=== PATIENT | male | born 1950 | race African-American/Black ===

== ENCOUNTER 2017-01-24 01:16 | Emergency (ER) | payer MEDICARE, OTHER ==
--- NOTE | 2017-01-24 03:15 | ER Document Report ---
HPI - HPI Patient complains to provider of: Left thumb injury Pain Level: 4 Context: Patient is a 66-year-old male comes emergency department for chief complaint of injury to his left thumb, he states that he was hammering yesterday and hit with a hammer, he states that instead of improving the usual it has become significantly more painful and he cannot stand the throbbing. He is not on a blood thinner, past medical history of hypertension and hyperlipidemia, he is medicated for these. He denies any other injuries or complaints. - DERM Skin Color: Normal Past Medical History - General Information source: Patient - Social History Smoking Status: Never Smoker Frequency of alcohol use: None Drug Abuse: None Lives with: Family Family History: Reviewed & Not Pertinent - Past Medical History Cardiac Medical History: Reports: Hx Hypercholesterolemia, Hx Hypertension Renal/ Medical History: Reports: Hx Kidney Stones. Denies: Hx Peritoneal Dialysis Musculoskeltal Medical History: Reports Hx Arthritis Past Surgical History: Reports: Hx Orthopedic Surgery - Left total hip replacement for DJD - Immunizations Hx Diphtheria, Pertussis, Tetanus Vaccination: Yes Vertical Provider Document - INFECTION CONTROL TRAVEL OUTSIDE OF THE [place] IN LAST 30 DAYS: No - HEENT HEENT: Atraumatic, Normocephalic - NECK Neck: Normal Inspection - RESPIRATORY Respiratory: Breath Sounds Normal, No Respiratory Distress O2 Sat by Pulse Oximetry: 99 - CARDIOVASCULAR Cardiovascular: Regular Rate, Regular Rhythm - GI/ABDOMEN Gastrointestinal: Abdomen Soft, Abdomen Non-Tender - BACK Back: Normal Inspection - MUSCULOSKELETAL/EXTREMETIES Musculoskeletal/Extremeties: Tender - Left thumbnail with bruising/bleeding underneath, minimal swelling to the thumb, normal range of motion of the thumb at all joints, no abnormal heat, normal sensation, normal capillary refill. Normal hand exam otherwise. Course - Vital Signs Vital signs: Temp Pulse Resp BP Pulse Ox 97.7 F 79 16 151/89 H 99 01/24/17 01:21 01/24/17 01:21 01/24/17 01:21 01/24/17 01:21 01/24/17 01:21 - Diagnostic Test Radiology reviewed: Image reviewed, Reports reviewed Procedures - Additional Procedures Left thumb Notes: Left thumbnail cleaned with alcohol, dried off, afterwards Bovie was used to burn a hole in the top of the nail, moderately large amount of bleeding from underneath the nail occurred and was expressed afterwards. Patient had good relief of symptoms. Area cleaned and dressed. Discharge - Discharge Clinical Impression: Subungual hematoma Thumb injury Qualifiers: Encounter type: initial encounter Laterality: left Qualified Code(s): S69.92XA - Unspecified injury of left wrist, hand and finger(s), initial encounter Condition: Stable Disposition: HOME, SELF-CARE Additional Instructions: You have a collection of blood between the nail bed and nail, called a subungual hematoma. This injury is often very painful due to the pressure that builds up under the nail. The pressure is relieved by draining blood from beneath the nail, either by creating some small holes in it, or by the nail from the skin. This will usually stop the pain. Sometimes the nail must be removed completely to examine the nail bed for injury. You should elevate the injured digit as much as possible for the next two days. Usually the injured nail will separate from its bed over the next few weeks. A new nail will grow over the exposed nail bed. This may take two or three months. If swelling around the cuticle, redness, fever, or increasing pain occur, you should call the doctor immediately. Referrals: JOSE DE JESUS LIRIANO MD [Primary Care Provider] - Follow up as needed
[2017-01-24] MEDS ORDERED: ACETAMINOPHEN 325 MG TABLET ONE (03:41)
[2017-01-24] MEDS ORDERED: ACETAMINOPHEN 325 MG TABLET PO ONE (03:49)
--- NOTE | 2017-01-24 05:06 | RADIOLOGY REPORT (SQ) ---
EXAM DESCRIPTION: FINGER LEFT CLINICAL HISTORY: 66 years, Male, thumb injury COMPARISON: None. NUMBER OF VIEWS: 3 TECHNIQUE: Routine radiographic technique. LIMITATIONS: None. FINDINGS: No fractures or dislocations. No radiopaque soft tissue foreign bodies or soft tissue gas. Evidence of early osteoarthritis in the first left metatarsal phalangeal joint. IMPRESSION: Degenerative disease. No fractures, dislocations or radiopaque soft tissue foreign bodies. 2011 [employer]- All Rights Reserved
[2017-01-24 05:20] VITALS: BP 110/88
== END 2017-01-24 05:18 | disposition home or self-care (01) ==
LOC: ER 01:16
PROC: 0H9QXZZ Drainage of Finger Nail, External Approach (ICD-10-PCS; principal; 2017-01-24)
DX: S60.112A Contusion of left thumb with damage to nail, initial encounter (principal); W27.8XXA Contact with other nonpowered hand tool, initial encounter; Y92.009 Unspecified place in unspecified non-institutional (private) residence as the place of occurrence of the external cause; I10 Essential (primary) hypertension; E78.5 Hyperlipidemia, unspecified; Z79.899 Other long term (current) drug therapy
CPT/HCPCS: 99283; 73140; 11740; A9270

== ENCOUNTER 2017-08-30 21:09 | Emergency (ER) | payer MEDICARE, OTHER ==
[2017-08-30 21:23] VITALS: BP 138/83
--- NOTE | 2017-08-30 23:48 | ER Document Report ---
ED General - General Chief Complaint: Splinter in L foot Stated Complaint: LEFT FOOT INJURY Time Seen by Provider: 08/30/17 22:00 Notes: Patient is a 67-year-old male who presents with a splinter in his left heel. He states this occurred when he was walking barefoot on a ramp in front of his house. He states that he was unable to remove the splinter. He notes a dull, throbbing, stabbing pain to the affected area. Walking on the foot is unbearable due to the pain. Nothing improves the pain. No history of similar injury in the past. He is up-to-date on his tetanus immunization. He has not seen his primary doctor regarding today's concerns. TRAVEL OUTSIDE OF THE [place] IN LAST 30 DAYS: No Past Medical History - General Information source: Patient - Social History Smoking Status: Never Smoker Frequency of alcohol use: None Drug Abuse: None Lives with: Family Family History: Reviewed & Not Pertinent - Past Medical History Cardiac Medical History: Reports: Hx Hypercholesterolemia, Hx Hypertension Renal/ Medical History: Reports: Hx Kidney Stones. Denies: Hx Peritoneal Dialysis Musculoskeltal Medical History: Reports Hx Arthritis Past Surgical History: Reports: Hx Orthopedic Surgery - Left total hip replacement for DJD - Immunizations Hx Diphtheria, Pertussis, Tetanus Vaccination: Yes Review of Systems - Review of Systems Notes: Constitutional: Negative for fever. Cardiovascular: Negative for chest pain. Respiratory: Negative for shortness of breath. Gastrointestinal: Negative for vomiting Musculoskeletal: Negative for back pain. Skin: Positive for a splinter in the left heel Neurological: Negative for weakness or numbness. 10 point ROS negative except as marked above and in HPI. Physical Exam - Vital signs Vitals: Temp Pulse Resp BP Pulse Ox 98.1 F 81 18 138/83 H 96 08/30/17 21:19 08/30/17 21:19 08/30/17 21:19 08/30/17 21:19 08/30/17 21:19 Notes: PHYSICAL EXAMINATION: GENERAL: Well-appearing, well-nourished and in no acute distress. HEAD: Atraumatic, normocephalic. EYES: sclera anicteric, conjunctiva are normal. ENT: Moist mucous membranes. NECK: Normal range of motion LUNGS: Normal work of breathing HEART: 2+ DP pulses bilaterally EXTREMITIES: no pitting or edema. No cyanosis. NEUROLOGICAL: No focal neurological deficits. Moves all extremities spontaneously and on command. PSYCH: Normal mood, normal affect. SKIN: Warm, Dry, normal turgor, there is an apparent splinter lodged into the left heel with some mild surrounding erythema Course - Re-evaluation Re-evalutation: 08/30/17 23:46 Patient presents with a splinter foot. This is from a wood deck. His tetanus is up-to-date. The area was cut down and a 3 cm wood splinter was able to be extracted. The wound was subsequently cleaned and irrigated. Patient has been instructed to apply topical antibiotic ointment and keep the area clean and dressed as this is a high risk area for infection given that it is on the bottom of his foot. At this time will discharge with return precautions and follow-up recommendations. Verbal discharge instructions given a the bedside and opportunity for questions given. Medication warnings reviewed. Patient is in agreement with this plan and has verbalized understanding of return precautions and the need for primary care follow-up in the next 24-72 hours. - Vital Signs Vital signs: Temp Pulse Resp BP Pulse Ox 98.1 F 81 18 138/83 H 96 08/30/17 21:19 08/30/17 21:19 08/30/17 21:19 08/30/17 21:19 08/30/17 21:19 Procedures - Additional Procedures Foreign body removal left foot Notes: 08/31/17 03:13 There was a splinter located in the left heel. The area was sterilized with Betadine prep. A sterile field was applied. Sterile precautions were maintained. A 22-gauge needle was placed into the affected area and 1 cc of 1% lidocaine was instilled to the area. A 1.5 cm incision was made with a scalpel exposing the underlying splinter. A Coco clamp was applied to the splinter and it was able to be removed successfully fully intact. The area was irrigated thereafter. A sterile dressing was applied. Discharge - Discharge Clinical Impression: Splinter of left foot Qualifiers: Encounter type: initial encounter Qualified Code(s): S90.852A - Superficial foreign body, left foot, initial encounter Condition: Good Disposition: HOME, SELF-CARE Additional Instructions: You were seen today for splinter removal of your left foot. Please clean this area with soap and water twice daily and apply a topical antibiotic. Dress the area after each cleaning. Please return if you develop fever, vomiting, the pain at the site worsens, you notice spreading redness from the area, or you have any other symptoms that are concerning to you. Referrals: JOSE DE JESUS LIRIANO MD [Primary Care Provider] - Follow up as needed
== END 2017-08-31 00:15 | disposition home or self-care (01) ==
LOC: ER 21:09
PROC: 0HCNXZZ Extirpation of Matter from Left Foot Skin, External Approach (ICD-10-PCS; principal; 2017-08-30)
DX: S90.852A Superficial foreign body, left foot, initial encounter (principal); W45.8XXA Other foreign body or object entering through skin, initial encounter; Y92.008 Other place in unspecified non-institutional (private) residence as the place of occurrence of the external cause; E78.00 Pure hypercholesterolemia, unspecified; I10 Essential (primary) hypertension; Z87.442 Personal history of urinary calculi; Z96.642 Presence of left artificial hip joint
CPT/HCPCS: 99282

== ENCOUNTER 2017-11-23 12:13 | Emergency (ER) | payer MEDICARE, OTHER ==
[2017-11-23] MEDS ORDERED: NORMAL SALINE 1000 ML 1,000 ML IV ONE (12:56)
[2017-11-23] MEDS ORDERED: ONDANSETRON HCL INJ/PF 4 MG/2 ML SDV IV ONE (12:56)
[2017-11-23] MEDS ORDERED: KETOROLAC TROMETHAMINE INJ/PF 30 MG/1 ML SDV IV ONE (12:56)
--- NOTE | 2017-11-23 12:58 | ER Document Report ---
ED GI/ - General Chief Complaint: Flank Pain Stated Complaint: FLANK PAIN Time Seen by Provider: 11/23/17 12:56 Notes: Chief complaint: abdominal pain: Left flank pain History of complain:( obtained from----patient) 67 years old male with history of multiple kidney stones, presents today with left flank pain since last Thursday which is 4 days ago. Persistent pain with on and off exacerbation. Associated with nausea no vomiting. Denies any fever chills dysuria frequency or urgency. Denies any hematuria. Denies any diarrhea or constipation denies any other constitutional symptoms Onset: As above Duration: As above Severity: Moderate Quality: Sharp Context: Renal stones Exacerbating factor and relieving factors: None REVIEW OF SYSTEMS: CONSTITUTIONAL : Denies fever, chills, or sweats. Denies recent illness. EENT: Denies eye, ear, throat, or mouth pain or symptoms. Denies nasal or sinus congestion or discharge. Denies throat, tongue, or mouth swelling or difficulty swallowing. CARDIOVASCULAR: Denies chest pain. Denies palpitations or racing or irregular heart beat. Denies ankle edema. RESPIRATORY: Denies cough, cold, or chest congestion. Denies shortness of breath, difficulty breathing, or wheezing. GASTROINTESTINAL: Denies distention. Denies nausea, vomiting, or diarrhea. Denies blood in vomitus, stools, or per rectum. Denies black, tarry stools. Denies constipation. GENITOURINARY: Denies difficulty urinating, painful urination, burning, frequency, blood in urine, or discharge. FEMALE GENITOURINARY: Denies vaginal bleeding, heavy or abnormal periods, irregular periods. Denies vaginal discharge or odor. MUSCULOSKELETAL: Denies back or neck pain or stiffness. Denies joint pain or swelling. SKIN: Denies rash, lesions or sores. HEMATOLOGIC : Denies easy bruising or bleeding. LYMPHATIC: Denies swollen, enlarged glands. NEUROLOGICAL: Denies confusion or altered mental status. Denies passing out or loss of consciousness. Denies dizziness or lightheadedness. Denies headache. Denies weakness or paralysis or loss of use of either side. Denies problems with gait or speech. Denies sensory loss, numbness, or tingling. Denies seizures. PSYCHIATRIC: Denies anxiety or stress. Denies depression, suicidal ideation, or homicidal ideation. ALL OTHER SYSTEMS REVIEWED AND NEGATIVE. PHYSICAL EXAMINATION: GENERAL: Well-appearing, well-nourished and in no acute distress. HEAD: Atraumatic, normocephalic. EYES: Pupils equal round and reactive to light, extraocular movements intact, conjunctiva are normal. ENT: Nares patent, oropharynx clear without exudates. Moist mucous membranes. NECK: Normal range of motion, supple without lymphadenopathy LUNGS: Breath sounds clear to auscultation bilaterally and equal. No wheezes rales or rhonchi. HEART: Regular rate and rhythm without murmurs ABDOMEN: Soft, nontender, nondistended abdomen. No guarding, no rebound. No masses appreciated. Female : deferred Musculoskeletal: Normal range of motion, no pitting or edema. No cyanosis. NEUROLOGICAL: Cranial nerves grossly intact. Normal speech, normal gait. Normal sensory, motor exams PSYCH: Normal mood, normal affect. SKIN: Warm, Dry, normal turgor, no rashes or lesions noted. Dictation was performed using [employer] voice recognition software TRAVEL OUTSIDE OF THE [place] IN LAST 30 DAYS: No - HPI Notes: 11/23/17 12:58 Dictated - Related Data Allergies/Adverse Reactions: No Known Allergies Allergy (Verified 11/23/17 12:49) Past Medical History - Social History Smoking Status: Never Smoker Chew tobacco use (# tins/day): No Frequency of alcohol use: None Drug Abuse: None Family History: Reviewed & Not Pertinent Patient has suicidal ideation: No Patient has homicidal ideation: No - Past Medical History Cardiac Medical History: Reports: Hx Hypercholesterolemia, Hx Hypertension Renal/ Medical History: Reports: Hx Kidney Stones. Denies: Hx Peritoneal Dialysis Musculoskeletal Medical History: Reports Hx Arthritis Past Surgical History: Reports: Hx Orthopedic Surgery - Left total hip replacement for DJD - Immunizations Hx Diphtheria, Pertussis, Tetanus Vaccination: Yes Review of Systems - Review of Systems Notes: Dictated Physical Exam - Vital signs Vitals: Temp Pulse Resp BP Pulse Ox 98.0 F 76 20 132/80 H 97 11/23/17 12:34 11/23/17 12:34 11/23/17 12:34 11/23/17 12:34 11/23/17 12:34 - Notes Notes: Dictated Course - Vital Signs Vital signs: Temp Pulse Resp BP Pulse Ox 98.0 F 76 20 132/80 H 97 11/23/17 12:34 11/23/17 12:34 11/23/17 12:34 11/23/17 12:34 11/23/17 12:34 - Laboratory Result Diagrams: 11/23/17 13:28 11/23/17 14:00 Laboratory results interpreted by me: 11/23/17 14:00 Sodium 145.1 H - Diagnostic Test Radiology reviewed: Reports reviewed - CT reported by radiologist as multiple renal stones. None in the ureter. And renal cyst Discharge - Discharge Clinical Impression: Bilateral nephrolithiasis Condition: Fair Disposition: HOME, SELF-CARE Instructions: Kidney Stone ([facility]) Prescriptions: Oxycodone HCl/Acetaminophen [Percocet 5-325 mg Tablet] 1 tab PO Q8 #15 tablet Referrals: JOSE DE JESUS LIRIANO MD [Primary Care Provider] - Follow up as needed
[2017-11-23 13:41] LABS: ABSOLUTE BASOPHILS # (AUTO) 0.1 10^3/uL (0.0-0.2); ABSOLUTE EOSINOPHILS # (AUTO) 0.1 10^3/uL (0.0-0.6); ABSOLUTE LYMPHOCYTES (AUTO) 2.2 10^3/uL (0.5-4.7); ABSOLUTE MONOCYTES (AUTO) 0.5 10^3/uL (0.1-1.4); ABSOLUTE NEUT (AUTO) 6.3 10^3/uL (1.7-8.2); BASOPHILS % (AUTO) 0.6 % (0-2); EOSINOPHILS % (AUTO) 1.4 % (0-6); HEMOGLOBIN 15.3 g/dL (13.5-17.0); LYMPHOCYTES % (AUTO) 24.3 % (13-45); MEAN CORPUSCULAR HEMOGLOBIN 30.3 pg (27.0-33.4); MEAN CORPUSCULAR HGB CONC 33.3 g/dL (32.0-36.0); MEAN CORPUSCULAR VOLUME 91 fl (80-97); MONOCYTES % (AUTO) 5.4 % (3-13); PLATELET COUNT 168 10^3/uL (150-450); RED BLOOD COUNT 5.05 10^6/uL (4.35-5.55); RED CELL DISTRIBUTION WIDTH 13.5 % (11.5-14.0); SEGMENTED NEUTROPHILS % (AUTO) 68.3 % (42-78); TOTAL CELLS COUNTED % (AUTO) 100 %; WHITE BLOOD COUNT 9.2 10^3/uL (4.0-10.5)
[2017-11-23 14:43] LABS: ALANINE AMINOTRANSFERASE 27 U/L (21-72); ALBUMIN 4.4 g/dL (3.5-5.0); ALKALINE PHOSPHATASE 91 U/L (38-126); ANION GAP 13 (5-19); ASPARTATE AMINO TRANSFERASE 27 U/L (17-59); BILIRUBIN,DIRECT 0.2 mg/dL (0.0-0.4); BILIRUBIN,TOTAL 0.8 mg/dL (0.2-1.3); BLOOD UREA NITROGEN 16 mg/dL (7-20); CALCIUM 9.7 mg/dL (8.4-10.2); CARBON DIOXIDE 27 mmol/L (22-30); CHLORIDE 105 mmol/L (98-107); GLUCOSE 87 mg/dL (75-110); POTASSIUM 4.5 mmol/L (3.6-5.0); SODIUM 145.1 mmol/L (137-145); TOTAL PROTEIN 8.1 g/dL (6.3-8.2)
--- NOTE | 2017-11-23 15:26 | RADIOLOGY REPORT (SQ) ---
EXAM DESCRIPTION: CT LTD RENAL STONE PROTOCOL ON COMPLETED DATE/TIME: 11/23/2017 2:56 pm REASON FOR STUDY: Left flank pain COMPARISON: 05/20/2014 TECHNIQUE: CT scan of the abdomen and pelvis performed without intravenous or oral contrast. Images reviewed with lung, soft tissue, and bone windows. Reconstructed coronal and sagittal MPR images revi ewed. All images stored on PACS. All CT scanners at this facility use dose modulation, iterative reconstruction, and/or weight based d osing when appropriate to reduce radiation dose to as low as reasonably achievable (ALARA). [facility]: Dose Right [facility]: CareDose [facility]: Dose Right [facility]: Teradose 4D [facility]: Smart COZero RADIATION DOSE: CT Rad equipment meets quality standard of care and radiation dose reduction techniq ues were employed. CTDIvol: 8.4 mGy. DLP: 454 mGy-cm. LIMITATIONS: None. FINDINGS: LOWER CHEST: No significant bowel changes. NON-CONTRASTED LIVER, SPLEEN, ADRENALS: Evaluation limited by lack of IV contrast. No identified sign ificant masses. PANCREAS: Stable very small scattered within the pancreas, may represent sequelae from prior inflamm atory changes. No peripancreatic inflammatory changes. GALLBLADDER: No identified stones by CT criteria. No inflammatory changes to suggest cholecystitis. RIGHT KIDNEY AND URETER: Multiple renal cysts, some of which have increased in size. One of the lar gest cyst is located in the upper pole of the kidney which measures 5.5 cm x 5.9 cm on the current ex amination, compared to 4.0 cm x 4.0 cm on the prior examination. Stable small complex cyst in the up per mid pole with a surrounding the and calcific rim. There are multiple nonobstructing calculi in the mid and lower poles of the kidney, some of which hav e slightly increased in size. Some of the largest measure 7 mm. Assessment limited by lack of IV co ntrast. LEFT KIDNEY AND URETER: As on the prior examination, nonobstructing calculi in the mid and lower flako e of the kidney. The largest calculus measures 8-9 mm on the current examination, compared to 6-7 mm on the prior study. Cortical and parapelvic cysts, some of which have increased in size. One of th e largest measures 2.0 cm x 1.5 cm. Assessment limited by lack of IV contrast. AORTA AND RETROPERITONEUM: No aneurysm. No retroperitoneal masses or adenopathy. BOWEL AND PERITONEAL CAVITY: Constipation. No free fluid. Stable appearing mesenteric lymph nodes. . APPENDIX: Normal. PELVIS, BLADDER, AND ABDOMINAL WALL: Partially visualized total left hip prostheses produces artifac t limiting detail somewhat in the pelvic region. Stable small fat containing umbilical hernia. Pros acosta gland is stable in appearance. No free fluid. Bladder normal. BONES: The osseous structures are stable in appearance. OTHER: Small stable hiatal hernia. IMPRESSION: 1 Bilateral nonobstructing renal nephrolithiasis. Since the previous examination dated 05/20/2014, several of the calcifications have slightly increased in size. No evidence of hydroureter . 2. Bilateral renal cysts. Several of the cysts in the kidneys have increased in size, as noted abov e. 3. Additional stable findings as above. COMMENT: Quality ID # [id number]: Final reports with documentation of one or more dose reduction techniques (e.g., Automated exposure control, adjustment of the mA and/or kV according to patient size, use of iterative reconstruction technique) TECHNICAL DOCUMENTATION: JOB ID: [id number] [employer]- All Rights Reserved Reading location - IP/workstation name: [email or web address]
[2017-11-23 16:37] VITALS: BP 146/78
== END 2017-11-23 16:52 | disposition home or self-care (01) ==
LOC: ER 12:13
DX: N20.0 Calculus of kidney (principal); R10.9 Unspecified abdominal pain; E78.00 Pure hypercholesterolemia, unspecified; I10 Essential (primary) hypertension; Z87.442 Personal history of urinary calculi; Z96.642 Presence of left artificial hip joint
CPT/HCPCS: 99284; 96361; 96374; 96375; 36415; 85025; 80053; 76380; J1885; J2405; J7030

== ENCOUNTER 2018-05-27 00:39 | Emergency (ER) | payer MEDICARE, OTHER ==
[2018-05-27] MEDS ORDERED: OXYCODONE-ACETAMINOPHEN 5-325 MG TABLET PO ONE (03:31)
[2018-05-27] MEDS ORDERED: ONDANSETRON 4 MG TAB.RAPDIS PO ONE (03:31)
--- NOTE | 2018-05-27 03:33 | ER Document Report ---
ED Medical Screen (RME) - General Chief Complaint: Possible Kidney Stone Stated Complaint: FLANK PAIN Time Seen by Provider: 05/27/18 03:29 Primary Care Provider: JOSE DE JESUS LIRIANO MD [Primary Care Provider] - Follow up as needed Notes: 68-year-old -[place] male with right-sided flank pain radiating to the abdomen. Feels like a kidney stone but he has had previously. No fevers or shaking chills. No urinary symptoms. Nausea but no active vomiting. No diarrhea. I have treated and performed a rapid initial assessment of this patient. A comprehensive ED assessment and evaluation of the patient, analysis of test results and completion of medical decision making process will be conducted by additional ED providers. PHYSICAL EXAMINATION: GENERAL: Well-appearing, well-nourished and in no acute distress. A&Ox4. Answers questions appropriately. LUNGS: Breath sounds clear to auscultation bilaterally and equal. No wheezes rales or rhonchi. HEART: Regular rate and rhythm without murmurs, rubs, gallops. TRAVEL OUTSIDE OF THE [place] IN LAST 30 DAYS: No - Related Data Allergies/Adverse Reactions: No Known Allergies Allergy (Verified 05/27/18 00:45) Past Medical History - Past Medical History Cardiac Medical History: Reports: Hx Hypercholesterolemia, Hx Hypertension Renal/ Medical History: Reports: Hx Kidney Stones. Denies: Hx Peritoneal Dialysis Musculoskeltal Medical History: Reports Hx Arthritis Past Surgical History: Reports: Hx Orthopedic Surgery - Left total hip replacement for DJD - Immunizations Hx Diphtheria, Pertussis, Tetanus Vaccination: Yes Physical Exam - Vital signs Vitals: Temp Pulse Resp BP Pulse Ox 98 F 78 18 151/89 H 100 05/27/18 00:47 05/27/18 00:47 05/27/18 00:47 05/27/18 00:47 05/27/18 00:47 Course - Vital Signs Vital signs: Temp Pulse Resp BP Pulse Ox 98 F 78 18 151/89 H 100 05/27/18 00:47 05/27/18 00:47 05/27/18 00:47 05/27/18 00:47 05/27/18 00:47 Doctor's Discharge - Discharge Referrals: JOSE DE JESUS LIRIANO MD [Primary Care Provider] - Follow up as needed
--- NOTE | 2018-05-27 04:48 | ER Document Report ---
Addendum entered and electronically signed by EDY BHAGAT PA-C 05/27/18 06:42: Discharge - Discharge Clinical Impression: Colic, ureteral Condition: Good Disposition: HOME, SELF-CARE Instructions: Antinausea Medication ([facility]), Kidney Stone ([facility]), Oral Narcotic Medication ([facility]) Prescriptions: Ondansetron [Zofran Odt 4 mg Tablet] 1 tab PO Q6H PRN #10 tab.rapdis PRN Reason: For Nausea/Vomiting Oxycodone HCl/Acetaminophen [Percocet 5-325 mg Tablet] 1 tab PO Q6H PRN #10 tablet PRN Reason: Referrals: JOSE DE JESUS LIRIANO MD [Primary Care Provider] - Follow up as needed Original Note: ED General - General Chief Complaint: Possible Kidney Stone Stated Complaint: FLANK PAIN Time Seen by Provider: 05/27/18 03:29 Primary Care Provider: JOSE DE JESUS LIRIANO MD [Primary Care Provider] - Follow up as needed Mode of Arrival: Ambulatory Information source: Patient TRAVEL OUTSIDE OF THE [place] IN LAST 30 DAYS: No - HPI Patient complains to provider of: RIGHT FLANK PAIN; FEELS LIKE KIDNEY STONE Onset: Yesterday Onset/Duration: Sudden Quality of pain: Sharp Severity: Moderate Associated symptoms: denies: Chills, Fever Exacerbated by: Denies Relieved by: Denies Similar symptoms previously: Yes - KIDNEY STONES Recently seen / treated by doctor: No Notes: 68-year-old -[place] male presenting with right flank/low back pain since yesterday. Some nausea. No vomiting. Patient has a history of kidney stones. The symptoms feel the same. No fevers or shaking chills. No dysuria. - Related Data Allergies/Adverse Reactions: No Known Allergies Allergy (Verified 05/27/18 00:45) Past Medical History - General Information source: Patient - Social History Smoking Status: Never Smoker Family History: Reviewed & Not Pertinent Patient has suicidal ideation: No Patient has homicidal ideation: No - Past Medical History Cardiac Medical History: Reports: Hx Hypercholesterolemia, Hx Hypertension Renal/ Medical History: Reports: Hx Kidney Stones. 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 denies: Diarrhea, Vomiting Genitourinary: Flank pain Male Genitourinary: No symptoms reported Musculoskeletal: No symptoms reported Skin: No symptoms reported Hematologic/Lymphatic: No symptoms reported Neurological/Psychological: No symptoms reported -: Yes All other systems reviewed and negative Physical Exam - Vital signs Vitals: Temp Pulse Resp BP Pulse Ox 98 F 78 18 151/89 H 100 05/27/18 00:47 05/27/18 00:47 05/27/18 00:47 05/27/18 00:47 05/27/18 00:47 - General General appearance: Appears well In distress: None - HEENT Head: Normocephalic, Atraumatic Eyes: Normal Conjunctiva: Normal Extraocular movements intact: Yes Pupils: PERRL Nasal: Normal Mouth/Lips: Normal Mucous membranes: Normal, Moist Pharynx: Normal Neck: Normal - Respiratory Respiratory status: No respiratory distress Chest status: Nontender Breath sounds: Normal Chest palpation: Normal - Cardiovascular Rhythm: Regular Heart sounds: Normal auscultation Murmur: No - Abdominal Inspection: Normal Distension: No distension Bowel sounds: Normal Tenderness: Nontender - Back Back: Normal - Extremities Notes: CORA. - Neurological Neuro grossly intact: Yes - Psychological Associated symptoms: Normal affect, Normal mood - Skin Skin Temperature: Warm Skin Moisture: Dry Skin Color: Normal Skin irregularity: negative: Rash Course - Re-evaluation Re-evalutation: 05/27/18 04:47 Patient does not appear to be in any great amount of discomfort at this time. He has no nausea or vomiting. History is positive for kidney stones in the past. We will do a kidney stone workup. 05/27/18 06:30 Patient feeling considerably better. Still some nausea. Every once in a while still feels some pain. We discussed the lab findings. He does have a moderate amount of blood in his urine but no evidence of infection. His BUN and creatinine are normal. CT does not show any ureteral calculi or hydronephrosis. There is bilateral nephrolithiasis. I will write him up with some Zofran ODT and something for pain and discharge him home. - Vital Signs Vital signs: Temp Pulse Resp BP Pulse Ox 98 F 78 18 151/89 H 100 05/27/18 00:47 05/27/18 00:47 05/27/18 00:47 05/27/18 00:47 05/27/18 00:47 - Laboratory Result Diagrams: 05/27/18 05:08 05/27/18 05:08 Laboratory results interpreted by me: 05/27/18 05/27/18 04:15 05:08 RDW 14.1 H Urine Blood MODERATE H - Diagnostic Test Radiology reviewed: Reports reviewed Discharge - Discharge Clinical Impression: Colic, ureteral Condition: Good Disposition: HOME, SELF-CARE Instructions: Antinausea Medication ([facility]), Oral Narcotic Medication ([facility]), Kidney Stone ([facility]) Prescriptions: Ondansetron [Zofran Odt 4 mg Tablet] 1 tab PO Q6H PRN #10 tab.rapdis PRN Reason: For Nausea/Vomiting Oxycodone HCl/Acetaminophen [Percocet 5-325 mg Tablet] 1 tab PO Q6H PRN #10 tablet PRN Reason: Referrals: JOSE DE JESUS LIRIANO MD [Primary Care Provider] - Follow up as needed
[2018-05-27 04:56] LABS: APPEARANCE,URINE CLEAR; BILIRUBIN,URINE NEGATIVE (NEGATIVE); COLOR,URINE STRAW; GLUCOSE, URINE NEGATIVE (NEGATIVE); KETONES,URINE NEGATIVE (NEGATIVE); LEUKOCYTE ESTERASE,URINE NEGATIVE (NEGATIVE); NITRITE,URINE NEGATIVE (NEGATIVE); PROTEIN,URINE NEGATIVE (NEGATIVE); URINE SPECIFIC GRAVITY 1.004; UROBILINOGEN,URINE NEGATIVE mg/dL (<2.0)
[2018-05-27 05:25] LABS: ABSOLUTE BASOPHILS # (AUTO) 0.1 10^3/uL (0.0-0.2); ABSOLUTE EOSINOPHILS # (AUTO) 0.2 10^3/uL (0.0-0.6); ABSOLUTE LYMPHOCYTES (AUTO) 2.1 10^3/uL (0.5-4.7); ABSOLUTE MONOCYTES (AUTO) 0.6 10^3/uL (0.1-1.4); ABSOLUTE NEUT (AUTO) 5.2 10^3/uL (1.7-8.2); BASOPHILS % (AUTO) 0.9 % (0-2); EOSINOPHILS % (AUTO) 1.9 % (0-6); HEMOGLOBIN 15.2 g/dL (13.5-17.0); LYMPHOCYTES % (AUTO) 26.1 % (13-45); MEAN CORPUSCULAR HEMOGLOBIN 29.5 pg (27.0-33.4); MEAN CORPUSCULAR HGB CONC 33.1 g/dL (32.0-36.0); MEAN CORPUSCULAR VOLUME 89 fl (80-97); MONOCYTES % (AUTO) 7.6 % (3-13); PLATELET COUNT 172 10^3/uL (150-450); RED BLOOD COUNT 5.16 10^6/uL (4.35-5.55); RED CELL DISTRIBUTION WIDTH 14.1 % (11.5-14.0); SEGMENTED NEUTROPHILS % (AUTO) 63.5 % (42-78); TOTAL CELLS COUNTED % (AUTO) 100 %; WHITE BLOOD COUNT 8.2 10^3/uL (4.0-10.5)
--- NOTE | 2018-05-27 05:37 | RADIOLOGY REPORT (SQ) ---
EXAM DESCRIPTION: CT ABDOMEN PELVIS WITHOUT IV CONTRAST COMPLETED DATE/TME: 05/27/2018 03:29 CLINICAL HISTORY: 68 years, Male, RIGHT FLANK PAIN Comparison: None TECHNIQUE: Contiguous axial CT images of the abdomen and pelvis were obtained. Sagittal and coronal reformats were reviewed. This exam was performed according to our departmental dose-optimization program, which includes automated exposure control, adjustment of the mA and/or kV according to patient size and/or use of iterative reconstruction technique. FINDINGS: Lung bases: Clear. Liver:Unremarkable. No focal liver lesion. Gallbladder:Unremarkable. No gallstones. No gallbladder wall thickening or pericholecystic fluid. Spleen:Unremarkable Pancreas: Pancreas is unremarkable. Adrenal glands:Within normal limits. Kidneys/ureters: Multiple small renal calculi bilaterally. No hydronephrosis. 6.4 cm right renal cyst. Smaller renal cysts are present bilaterally. Stomach/small bowel/colon: Small hiatal hernia. Stomach is otherwise unremarkable. Small bowel is unremarkable. Colon is unremarkable. Appendix: No evidence of appendicitis. Peritoneum: No free fluid. Vascular structures: within normal limits Lymph nodes: No abnormal lymph nodes. Bladder: Portions of the bladder are obscured due to streak artifact from bilateral hip prostheses. Pelvic organs: No acute abnormality Bones: No acute osseous abnormality. Soft tissues: Unremarkable.. IMPRESSION: Nonobstructive bilateral nephrolithiasis. No acute intra-abdominal findings.
[2018-05-27 05:38] LABS: ALANINE AMINOTRANSFERASE 22 U/L (21-72); ALBUMIN 4.6 g/dL (3.5-5.0); ALKALINE PHOSPHATASE 108 U/L (38-126); ANION GAP 10 (5-19); ASPARTATE AMINO TRANSFERASE 22 U/L (17-59); BILIRUBIN,DIRECT 0.1 mg/dL (0.0-0.4); BILIRUBIN,TOTAL 0.6 mg/dL (0.2-1.3); BLOOD UREA NITROGEN 16 mg/dL (7-20); CALCIUM 9.7 mg/dL (8.4-10.2); CARBON DIOXIDE 29 mmol/L (22-30); CHLORIDE 103 mmol/L (98-107); GLUCOSE 104 mg/dL (75-110); POTASSIUM 4.1 mmol/L (3.6-5.0); SODIUM 142.4 mmol/L (137-145); TOTAL PROTEIN 7.7 g/dL (6.3-8.2)
[2018-05-27 07:08] VITALS: BP 102/68
== END 2018-05-27 07:08 | disposition home or self-care (01) ==
LOC: ER 00:39
DX: N23 Unspecified renal colic (principal); R11.0 Nausea; E78.00 Pure hypercholesterolemia, unspecified; I10 Essential (primary) hypertension; Z87.442 Personal history of urinary calculi; Z96.642 Presence of left artificial hip joint
CPT/HCPCS: 99284; 36415; 85025; 80053; 81001; 74176; A9270 ×2; S0119

== ENCOUNTER 2018-08-12 10:07 | Emergency (ER) | payer MEDICARE, OTHER ==
[2018-08-12 10:16] VITALS: BP 144/87
[2018-08-12] MEDS ORDERED: LIDOCAINE 5% (700 MG) TRANSDERMAL ADH..PATCH TP ONE (10:35)
[2018-08-12] MEDS ORDERED: DEXAMETHASONE 4 MG TABLET PO ONE (10:36)
--- NOTE | 2018-08-12 10:45 | ER Document Report ---
HPI - HPI Patient complains to provider of: Low back pain Time Seen by Provider: 08/12/18 10:29 Onset: Last week Onset/Duration: Persistent Quality of pain: Achy Pain Level: 4 Context: Patient presents complaining of flareup of chronic low back pain. Patient states pain does radiate to his leg. Patient denies any injury or fever. Patient states he had pain like this in the past. Associated Symptoms: Other - Low back pain. denies: Fever Exacerbated by: Movement Relieved by: Denies Similar symptoms previously: Yes Recently seen / treated by doctor: No - ROS ROS below otherwise negative: Yes Systems Reviewed and Negative: Yes All other systems reviewed and negative - CONSTITUTIONAL Constitutional: DENIES: Fever, Chills - NEURO Neurology: DENIES: Weakness - GASTROINTESTINAL Gastrointestinal: DENIES: Nausea, Patient vomiting - MUSCULOSKELETAL Musculoskeletal: REPORTS: Extremity pain, Back Pain. DENIES: Neck Pain - DERM Skin Color: Normal Skin Problems: None Past Medical History - General Information source: Patient - Social History Smoking Status: Never Smoker Frequency of alcohol use: None Drug Abuse: None Occupation: None Family History: Reviewed & Not Pertinent - Past Medical History Cardiac Medical History: Reports: Hx Hypercholesterolemia, Hx Hypertension Renal/ Medical History: Reports: Hx Kidney Stones. Denies: Hx Peritoneal Dialysis Musculoskeletal Medical History: Reports Hx Arthritis Past Surgical History: Reports: Hx Orthopedic Surgery - Left total hip replacement for DJD - Immunizations Hx Diphtheria, Pertussis, Tetanus Vaccination: Yes Vertical Provider Document - CONSTITUTIONAL Agree With Documented VS: Yes Exam Limitations: No Limitations General Appearance: WD/WN, No Apparent Distress Notes: PHYSICAL EXAMINATION: GENERAL: Well-appearing, well-nourished and in no acute distress. HEAD: Atraumatic, normocephalic. EYES: sclera clear, anicteric, conjunctiva are normal. ENT: nares patent, Moist mucous membranes. NECK: Normal range of motion, supple no lymphadenopathy LUNGS: respirations unlabored HEART: Regular rate and rhythm without murmurs EXTREMITIES: Normal range of motion, no pitting or edema. No cyanosis. Gait normal, pt ambulates without difficulty BACK: Right lower lumbar paraspinal tenderness, no midline tenderness, no deformities or step-offs. No CVA tenderness. NEUROLOGICAL: Cranial nerves grossly intact. Normal speech, normal gait. No saddle anesthesia. No foot drop PSYCH: Normal mood, normal affect. SKIN: Warm, Dry, normal turgor, no rashes or lesions noted. - INFECTION CONTROL TRAVEL OUTSIDE OF THE [place] IN LAST 30 DAYS: No Course - Re-evaluation Re-evalutation: The patient presents with low back pain without signs of spinal cord compression, cauda equina syndrome, infection, aneurysm, or other serious etiology. The patient is neurologically intact. Given the extremely risk of these diagnoses further testing and evaluation for these possibilities does not appear to be indicated at this time. Patient has been instructed to return if the symptoms worsen or change in any way. - Vital Signs Vital signs: Temp Pulse Resp BP Pulse Ox 97.8 F 84 16 144/87 H 98 08/12/18 10:14 08/12/18 10:14 08/12/18 10:14 08/12/18 10:14 08/12/18 10:14 Discharge - Discharge Clinical Impression: Low back pain Qualifiers: Chronicity: unspecified Back pain laterality: right Sciatica presence: with sciatica Sciatica laterality: sciatica of right side Qualified Code(s): M54.41 - Lumbago with sciatica, right side Condition: Stable Disposition: HOME, SELF-CARE Instructions: Ice Packs ([facility]), Low Back Pain ([facility]) Additional Instructions: Return immediately for any new or worsening symptoms Followup with your primary care provider, call tomorrow to make a followup appointment Prescriptions: Lidocaine [Lidoderm 5% (700 mg) Transdermal Patch] 1 patch TP DAILY PRN #10 adh..patch PRN Reason: Tramadol HCl [Ultram 50 mg Tablet] 50 mg PO ASDIR PRN #20 tablet PRN Reason: Referrals: JOSE DE JESUS LIRIANO MD [Primary Care Provider] - Follow up tomorrow
== END 2018-08-12 10:54 | disposition home or self-care (01) ==
LOC: ER 10:07
DX: G89.29 Other chronic pain (principal); M54.41 Lumbago with sciatica, right side; I10 Essential (primary) hypertension
CPT/HCPCS: 99283; A9270